=== PATIENT | male | born 2000 | race African-American/Black ===

== ENCOUNTER 2024-04-06 05:51 | Emergency (ER) | payer SELFPAY ==
[~2024-04-06] VITALS: Ht 177.8 cm; Wt 78.0 kg
[2024-04-06 05:54] VITALS: BP 124/70; PULSE 60; RESP 18; TEMP 36.7; O2SAT 98
[2024-04-06] MEDS ORDERED: BUPR1TAB33 SL (06:16)
[2024-04-06] MEDS: BUPRENORPHINE 8MG SL TABLET SL ONE (06:39)
== END 2024-04-06 06:40 | disposition home or self-care (01) ==
LOC: ER 05:51
DX: G47.00 Insomnia, unspecified (principal); R07.81 Pleurodynia; T40.495A Adverse effect of other synthetic narcotics, initial encounter; Y92.89 Other specified places as the place of occurrence of the external cause
CPT/HCPCS: 99283; Z7610